=== PATIENT | female | born 1970 | race African-American/Black ===

== ENCOUNTER 2017-05-04 17:47 | Inpatient (IN) | payer SELFPAY ==
[~2017-05-04] VITALS: Ht 163.8 cm; Wt 112.4 kg
[~2017-05-04 17:47] MED LIST: SEROQUEL300 MG PO
[2017-05-04 20:30] LABS: HEMATOCRIT 26.6 % (36.0-46.0); MCH 27.6 PG (29.0-34.0); MCHC 29.7 G/DL (30.0-36.0); NRBC (%) 0.5 /100 WBC (0-0); PLATELET COUNT 141 K/uL (156-360); RBC DIS.WIDTH-CV 20.1 % (11.8-14.6); RBC DIS.WIDTH-SD 68.3 % (39-53); RED BLOOD COUNT 2.86 M/uL (3.80-5.20); WHITE BLOOD COUNT 3.7 K/uL (4.1-10.2)
[2017-05-04 20:39] LABS: CHLORIDE 105 mEq/L (99-109); POTASSIUM 3.3 mEq/L (3.7-5.4); SODIUM 142 mEq/L (136-147)
[2017-05-04 20:41] LABS: GLUCOSE 226 mg/dL (70-99)
[2017-05-04 20:42] LABS: ANION GAP 8 MEQ/L (2-14)
[2017-05-04 20:51] LABS: GFR ESTIMATE (CALCULATED) > 59 mL/min/; TROP-I INTERPRETATION NEGATIVE; TROPONIN-I < 0.01 ng/mL (0.0-0.30); UREA NITROGEN (BUN) 8 mg/dL (9-23)
[2017-05-04 21:24] LABS: TOTAL BILIRUBIN 0.2 mg/dL (0.0-1.0)
[2017-05-04 21:25] LABS: ALKALINE PHOSPHATASE 96 IU/L (3-129)
[2017-05-04 21:27] LABS: DIRECT BILIRUBIN 0.1 mg/dL (0.0-0.3)
[2017-05-04 21:28] LABS: LIPASE 58 U/L (1.0-51.0)
[2017-05-04] MEDS ORDERED: LEVO-T175 MCG PO (23:57)
[2017-05-04] MEDS ORDERED: LIPITOR40 MG PO (23:58)
[2017-05-04] MEDS ORDERED: LOVENOX100 MG/1 M SC (23:58)
[2017-05-04] MEDS ORDERED: KLONOPIN1 MG PO (23:59)
[2017-05-04] MEDS ORDERED: COREG3.125 M1 PO (23:59)
[2017-05-04] MEDS ORDERED: PROMETHAZINE HC25 M1 PO (23:59)
[2017-05-05] MEDS ORDERED: VITAMIN D-3 401 EACH PO
[2017-05-05] MEDS ORDERED: VITAMIN E100 UNIT PO
[2017-05-05 04:08] VITALS: BP 143/95
[2017-05-05 05:25] VITALS: BP 143/95
== END 2017-05-05 06:06 | disposition left against medical advice (07) | DRG 194 ==
LOC: EME 17:47 → EDOF 05-05 01:50 → 2EAST 05-05 03:28
PROVIDERS: Emergency Medicine; Hospitalist
DX: J18.9 Pneumonia, unspecified organism (principal); K50.90 Crohn's disease, unspecified, without complications; Z68.41 Body mass index [BMI] 40.0-44.9, adult; E66.01 Morbid (severe) obesity due to excess calories; D64.9 Anemia, unspecified; E11.9 Type 2 diabetes mellitus without complications; G89.29 Other chronic pain; E78.5 Hyperlipidemia, unspecified; R09.02 Hypoxemia; Z79.899 Other long term (current) drug therapy; Z86.711 Personal history of pulmonary embolism; Z91.14 Patient's other noncompliance with medication regimen; R00.2 Palpitations; R07.89 Other chest pain
CPT/HCPCS: 71020; 71275; 80048; 80076; 81003; 83605; 83690; 84484; 85027; 87040; 87070; 87205; 87449; 87801; 93005; 99281; 99285; J1170; J1200; J1956; J2270; J2930; J3010; J7030; Q0164; S0028